=== PATIENT | male | born 1955 | race Caucasian/White ===

== ENCOUNTER 2024-07-28 08:29 | Emergency (ER) | payer OTHER, SELFPAY ==
[2024-07-28 08:36] VITALS: BP 155/96
[2024-07-28 08:56] VITALS: BP 143/95
[2024-07-28 09:28] LABS: % Basophils 0.1 % (0-2); % Eosinophils 0.8 % (0-6); % Immature Granulocytes 0.3 % (0-0.5); % Monocytes 10.8 % (1.7-9.3); Absolute Eosinophils 0.1 10^3/uL (0-0.7); Absolute Lymphocytes 0.4 10^3/uL (1.2-3.4); Absolute Monocytes 0.8 10^3/uL (0.1-0.6); Absolute Neutrophils 5.9 10^3/uL (1.4-6.5); Hematocrit 43.6 % (39.0-52.0); Mean Corp Hgb Conc. 32.1 g/dL (33.0-37.0); Mean Corpuscular Hgb 26.8 pg (27.0-31.0); Mean Corpuscular Volume 83.4 fL (80.0-94.0); Mean Platelet Volume 9.8 fL (7.4-10.4); Nucleated Red Blood Cells % 0 % (-); Platelet Count 200 10^3/uL (130-400); Red Blood Cell Count 5.23 10^6/uL (4.70-6.10); Red Cell Dist. Width 14.3 % (11.5-14.5); White Blood Cell Count 7.2 10^3/uL (4.8-10.8)
--- NOTE | 2024-07-28 09:33 | ED.GENMED ---
History of Present Illness
General
Chief Complaint: Cardiac Symptoms
Source: patient
Time Seen by Provider: 07/28/24 09:15
History of Present Illness
History of Present Illness:
68-year-old male presents to the emergency room after being discovered to have atrial fibrillation. Patient had gone to an outpatient center for a colonoscopy. While they were preparing the patient for the procedure they noted he was in atrial
fibrillation on the groundwater monitoring technician. They canceled the procedure and referred him to the emergency room. Patient denies any chest pain or shortness of breath. He was unaware he was in A-fib. He does have a history of an NE but does not see a
tool and die assembler regularly. He does not take any anticoagulation. No complaints at this time.
Phy Exam
Physical Exam
Physical Exam:
General: Awake, Alert, Oriented X3. No acute distress.
Vitals: unremarkable
Head: Atraumatic
Eyes: Pupils equal, EOMI
Throat: Airway intact, no exudates
Neck: Trachea midline
Lungs: Clear and equal b/l
Heart: Regular rate, no murmurs
Abd: Soft, Nontender, No pulsatile mass
Neuro: Nonfocal
Skin: Warm, dry, no rash
Extremities: pulses equal b/l, no edema
Scores
[id number] Score for Afib Stroke Risk
Age in Years (65=0, 65-74=1, >/=75=2): 65-74
Sex (Female=+1): Male
Congestive Heart Failure History (Yes=+1): No
Hypertension History (Yes=+1): Yes
Stroke/TIA/Thromboembolism History (Yes=+2): No
Vascular Disease History (Yes=+1): No
Diabetes Mellitus (Yes=+1): No
Score: 2
Anticoagulation Recommendations: Recommend anticoagulation (as validated in nonvalvular fib)
Course
Orders/Labs/Results
Orders:
Orders
07/28/24 08:31
Electrocardiogram (*1) Urgent
Reason for Study: Atrial Fibrillation
EKG- Treatment ONCE
07/28/24 09:08
CBC/With Diff [Complete Blood Count/With Diff] Urgent
Comprehensive Metabolic Panel Urgent
TSH Reflex To Free T4 Urgent
Comment: ADD ON
07/28/24 09:33
Add On- LAB Urgent
Tests Added?: tsh reflex t4
07/28/24 09:41
Apixaban [Eliquis] 5 mg PO NOW STA
Abnormal Lab Results
07/28/24
09:08
MCH 26.8 L pg
(27.0-31.0)
MCHC 32.1 L g/dL
(33.0-37.0)
Absolute Lymphs (auto) 0.4 L 10^3/uL
(1.2-3.4)
Absolute Monos (auto) 0.8 H 10^3/uL
(0.1-0.6)
Neutrophils % 82.0 H %
(42.2-75.2)
Lymphocytes % 6.0 L %
(20.5-51.1)
Monocytes % 10.8 H %
(1.7-9.3)
Glucose 109 H mg/dl
(70-99)
Total Bilirubin 1.8 H mg/dl
(0.2-1.3)
07/28/24 09:08
07/28/24 09:08
Vital Signs
Initial and Last Documented VS:
Initial Vital Signs
Temp Pulse Resp BP Pulse Ox
97.8 F 72 16 155/96 98
07/28/24 08:36 07/28/24 08:36 07/28/24 08:36 07/28/24 08:36 07/28/24 08:36
Last Documented Vital Signs
Temp Pulse Resp BP Pulse Ox
97.8 F 63 11 145/91 99
07/28/24 08:36 07/28/24 09:00 07/28/24 09:00 07/28/24 11:10 07/28/24 09:00
MDM/Problems Addressed
Differential Diagnosis Includes:
Electrolyte abnormality, hypothyroidism, paroxysmal atrial fibrillation
MDM/Problems Addressed:
Patient has no symptoms. He is in A-fib. Chads Vasc score 2. Still on Eliquis. Patient has seen a tool and die assembler at [facility] in the past but he does not wish to continue seeing the tool and die assembler as he is dissatisfied with them. Will provide him
contact information for cardiology here.
*Pulse Oximetry
Patient hypoxic: no
*EKG
Interpreted by ED Provider?: Yes
Interpretation: normal
Heart Rate: 69
Rate: normal
Pomeroy: normal axis
Interval: normal interval
QRS Pattern: right bundle branch block
Ischemia: non-specific ST changes
*Field Instructor Interpretation
Rate: normal
Interpretation: abnormal
Rhythm: a-fib
*Critical Care Note
Total Time (30-74mins, 75-104mins- exclusive of procedures): Not Applicable
ED Attending Note
-
Portions of this chart may have been created with voice recognition software.� Occasional wrong word or��sound alike� substitutions may have occurred due to the inherent limitations of voice recognition software.
Discharge Plan
Departure
Patient Disposition: Home (Routine Discharge)
Date of Disposition: 07/28/24
Time of Disposition: 11:01
Patient with high blood pressure during this ER visit?: Yes
Condition: Good
Discharge Problem:
Paroxysmal A-fib
Instructions: Atrial fibrillation and atrial flutter - ED discharge instructions, BLOOD PRESSURE
Prescriptions:
New
Eliquis 5 mg tablet
5 mg PO BID Qty: 60 0RF
Referrals:
Jaqueline Ocasio MD [Family Provider] -
Farrukh Guardado MD [Active] -
Interventions
Interventions:
*Risk Screen - Suicide Last Done: 07/28/24 08:36
*General Assessment Last Done: 07/28/24 09:05
*Neglect/Abuse Screening Last Done: 07/28/24 08:36
ED- Fall Risk Assessment Last Done: 07/28/24 08:44
*ED COVID-19 Vaccine History Last Done: 07/28/24 09:04
*Nursing Disposition Last Done: 07/28/24 11:11
ED- Pulmonary Assessment Last Done: 07/28/24 08:44
ED- Cardiac Assessment Last Done: 07/28/24 08:44
Discharge Date and Time
Discharge Date/Time: 07/28/24 11:11
Print Language: IRISH
[2024-07-28 09:34] LABS: ALT (SGPT) 32 U/L (0-50); AST (SGOT) 30 U/L (17-59); Albumin 4.2 g/dl (3.5-5.0); Alkaline Phosphatase 101 U/L (38-126); Blood Urea Nitrogen 11 mg/dl (9-20); Calcium 9.3 mg/dl (8.4-10.2); Carbon Dioxide 26 mmol/L (22-30); Chloride 102 mmol/L (98-107); Glucose 109 mg/dl (70-99); Potassium 4.2 mmol/L (3.5-5.1); Sodium 136 mmol/L (135-145); Total Bilirubin 1.8 mg/dl (0.2-1.3); Total Protein 6.6 g/dl (6.3-8.2); eGFR > 60.00
[2024-07-28] MEDS: ELIQUIS 5 MG PO (10:23)
[2024-07-28 10:57] LABS: TSH Reflex To Free T4 2.46 uIU/ml (0.47-4.68)
[2024-07-28 11:10] VITALS: BP 145/91
== END 2024-07-28 11:11 | disposition home or self-care (01) ==
LOC: EMR 08:29
PROVIDERS: EMERGENCY PHYSICIAN Emergency Medicine; FAMILY PHYSICIAN Family Medicine
DX: I48.0 Paroxysmal atrial fibrillation (principal); I25.2 Old myocardial infarction
CPT/HCPCS: 99284; 80053; 84443; 85025; 93005

== ENCOUNTER → 2024-08-25 22:00 | Outpatient (REF) | payer OTHER, SELFPAY | LOC: DHSLP 22:00 | PROVIDERS: ATTENDING PHYSICIAN Internal Medicine Cardiovascular Disease | DX: G47.30 Sleep apnea, unspecified (principal); R06.83 Snoring | CPT/HCPCS: 95800 ==

== ENCOUNTER → 2024-08-27 08:07 | Outpatient (REF) | payer OTHER, SELFPAY | LOC: HWRCS 08:07 | PROVIDERS: ATTENDING PHYSICIAN Internal Medicine Cardiovascular Disease; FAMILY PHYSICIAN Family Medicine | DX: R07.89 Other chest pain (principal) | CPT/HCPCS: 78452; 93017; A9500 ==

== ENCOUNTER → 2024-09-03 07:12 | Outpatient (REF) | payer OTHER, SELFPAY | LOC: HWRCS 07:12 | PROVIDERS: ATTENDING PHYSICIAN Internal Medicine Cardiovascular Disease; FAMILY PHYSICIAN Family Medicine | DX: I48.91 Unspecified atrial fibrillation (principal); R07.9 Chest pain, unspecified; I45.10 Unspecified right bundle-branch block | CPT/HCPCS: 93306 ==

== ENCOUNTER → 2025-01-14 07:37 | Outpatient (REF) | payer OTHER, SELFPAY ==
[2025-01-14 09:47] LABS: Potassium 4.3 mmol/L (3.5-5.1)
== END ==
LOC: REG 07:37
PROVIDERS: ATTENDING PHYSICIAN Physician Assistant; FAMILY PHYSICIAN Family Medicine; OTHER PHYSICIAN Internal Medicine Cardiovascular Disease
DX: E87.5 Hyperkalemia (principal)
CPT/HCPCS: 36415; 84132

== ENCOUNTER 2025-01-30 08:41 | Day surgery (SDC) | payer OTHER, SELFPAY ==
[2025-01-07 09:32] VITALS: BMI 24.0
[2025-01-07 09:59] LABS: Hematocrit 42.3 % (39.0-52.0); Hemoglobin 13.4 g/dL (13.0-18.0); Mean Corp Hgb Conc. 31.7 g/dL (33.0-37.0); Mean Corpuscular Volume 85.1 fL (80.0-94.0); Nucleated Red Blood Cells % 0 % (-); Platelet Count 178 10^3/uL (130-400); Red Cell Dist. Width 14.9 % (11.5-14.5)
[2025-01-07 10:07] LABS: INR 1.23; PT 16.0 Sec (11.4-14.6)
[2025-01-07 10:19] LABS: Blood Urea Nitrogen 11 mg/dl (9-20); Carbon Dioxide 29 mmol/L (22-30); Chloride 106 mmol/L (98-107); Estimated Creatinine Clearance 85 ml/min; Glucose 92 mg/dl (70-99); Potassium 5.7 mmol/L (3.5-5.1); Sodium 140 mmol/L (135-145); eGFR > 60.00
[2025-01-07 10:20] LABS: ALT (SGPT) 20 U/L (0-50); AST (SGOT) 24 U/L (17-59); Albumin 4.4 g/dl (3.5-5.0); Alkaline Phosphatase 66 U/L (38-126); Calcium 9.6 mg/dl (8.4-10.2); Magnesium 2.0 mg/dl (1.6-2.3); Total Protein 7.0 g/dl (6.3-8.2)
--- NOTE | 2025-01-07 11:39 | HPS.HSE ---
Family Physician
-
Family Physician: Jaqueline Ocasio
Chief Complaint
-
Persistent atrial fibrillation.
History of Present Illness
The patient is a 69 year old male presenting today for persistent atrial fibrillation. His most recent CAM in August 2024 revealed a 100% atrial fibrillation burden. He does report symptoms of atypical chest discomfort, palpitations, and
lightheadedness in the past, all likely associated with this diagnosis. A stress test in August 2024 was negative for ischemia. His most recent echocardiogram demonstrated normal left and right ventricular function with mild-moderate valvular
disease. He is currently rate controlled without the use of pharmacological therapy. He is on Eliquis for oral anticoagulation due to a CHADS-VASc of 2. He is interested in pursuing pulmonary vein isolation for further arrhythmia management at this
time. He denies any complaints today such as chest pain, shortness of breath, nausea, vomiting, diarrhea, cough, sore throat, or fever.
Medical History
Past Medical History
Past Medical History: Reports Other
Additional Past Medical History:
1. Persistent atrial fibrillation, oral anticoagulation with Eliquis.
2. Dyslipidemia.
3. Coronary artery disease, status post PCI with stent, 2011, and CABG x3 2012.
4. Bifascicular block.
5. Aortic root dilation, 4 cm on imaging.
6. Mild-moderate valvular disease.
7. Small bilateral pulmonary nodules on chest CT.
8. Chronic cough.
9. GERD.
10. Colon polyps.
11. Diverticulosis.
12. History of hepatitis C, treated.
13. Right lower extremity neuropathy.
14. Basal cell carcinoma, status post excision.
15. Hyperkalemia, improved with dietary adjustments.
16. Remote tobacco abuse.
Past Surgical History: Reports Other
Additional Past Surgical History:
1. PCI with stent.
2. CABG x3.
3. Left inguinal hernia repair.
4. Left knee surgery.
5. Bilateral cataract extraction.
6. Multiple colonoscopies.
7. Endoscopy.
Social History
Tobacco: Former Smoker (He is a former 1 pack per day cigarette smoker who quit tobacco altogether in 2011. )
Alcohol: None
Personal:
Living: Other (He lives with his and son in a split level home. )
Family History
Family History: Not pertinent
Allergies / Home Medications
Allergy/Medication List:
Home medications:
1. Apixaban 5 mg p.o. twice a day.
2. Atorvastatin 40 mg p.o. at bedtime.
3. Omeprazole 40 mg p.o. at bedtime.
Allergies: No known allergies.
Review of Systems
-
A 12 point ROS was completed and negative except as noted: Yes
Physical Exam
Vital Signs
Blood pressure 145/76. Heart rate 53. Respirations 18. Pulse ox 100% on room air.
Height 5 feet, 9 inches. Weight 73.8 kg. BMI 24.0.
Physical Exam
General: Well Developed, Well Nourished and No Apparent Distress
HEENT: NormoCephalic, Moist mucous membranes, Atraumatic and PERRLA
Respiratory: Clear
Cardiac: Irregular Rhythm
GI: Soft, Non Tender and Non Distended
Musculoskeletal: No Edema and Normal Gait & Station
Skin: Warm and Dry
Neuro: AO x 3 and Nonfocal/grossly intact
Laboratory Results
-
01/07/25 09:47
01/07/25 09:43
Laboratory Results
PT 16.0 Sec (11.4-14.6) H 01/07/25 09:43
INR 1.23 01/07/25 09:43
Total Bilirubin 1.4 mg/dl (0.2-1.3) H 01/07/25 09:43
AST 24 U/L (17-59) 01/07/25 09:43
ALT 20 U/L (0-50) 01/07/25 09:43
Alkaline Phosphatase 66 U/L (38-126) 01/07/25 09:43
Magnesium 2.0.
Type and screen AB positive.
DIAGNOSTIC STUDIES as of 01/14/2025: Potassium 4.3.
EKG 01/07/2025: Atrial fibrillation. Bifascicular block.
Chest CT 01/07/2025: Short segment common vestibule for the left superior and inferior pulmonary veins, fairly commonly seen and considered normal variant. Separate drainage ostium for the right middle lobe pulmonary vein. No evidence for left
atrial thrombus. Small bilateral pulmonary nodules measuring up to 5 mm. If the patient is considered high risk, an optional follow-up noncontrast CT chest can be obtained in 12 months.
Echocardiogram 09/03/2024: Normal left ventricular size and systolic function. No regional wall motion abnormalities are seen. LV ejection fraction is 60-65% by Mercer's method of discs. Mild concentric left ventricular hypertrophy. Diastolic
function indeterminate. Normal right ventricular size and function. Mildly thickened mitral valve leaflets with moderate mitral regurgitation. Sclerotic, trileaflet aortic valve with normal leaflet excursion and no significant regurgitation seen.
Tricuspid valve opens normally with moderate tricuspid regurgitation. Estimated pulmonary artery pressure of 40-45 mmHg, assuming a right atrial pressure of 3 mmHg. Sinus of Valsalva is 4.0 cm., S-T junction is 3.0 cm. and proximal ascending aorta
is 3.7 cm.
Myocardial stress test 08/27/2024: Inconclusive ECG for ischemia given baseline EKG abnormality. Normal exercise nuclear stress test. The exercise tolerance is below average for given age and gender. Stress Risk is low risk study (<1% FL or
/year). (Zapien Treadmill Score = +6). Systolic function is normal. The ejection fraction is 74%. No previous study available for comparison.
Impression/Plan
-
IMPRESSION/PLAN:
1. Persistent atrial fibrillation: The patient is in need of a pulmonary vein isolation with Dr. Will Prince on 01/30/2025. The benefits and risks of the procedure have been explained to the patient. The patient understands these risks and wishes
to proceed. He will not be required to undergo a pre-procedural transesophageal echocardiogram as he has been compliant with his home oral anticoagulation. He is aware to continue Eliquis uninterrupted prior to his ablation. He will take no
medications the morning of his procedure.
2. Small bilateral pulmonary nodules on pre-ablation chest CT: Per the patient, these pulmonary nodules are not new and he follows Dr. Ronaldo Man of Pulmonary for this diagnosis. They are followed with yearly serial CT scans. A copy of the patient's
chest CT was forwarded to his learning support resource room teacher for further review.
--- NOTE | 2025-01-12 15:50 | OID.L.PAT ---
Pulmonary Nodule Pat Letter
- -
01/12/25
ABDULLAHI BRITO
[address]
[place] [id number]
Dion FERNANDO,
A pulmonary nodule was seen on an imaging study done by [facility]. This was reviewed by the [facility] Pulmonary Nodule Advisory Board and the following recommendation was made:
Recommendation: Follow up CT Chest in 12 months.
If you have any questions, please do not hesitate to contact your primary care physician. If you are in need of a Physician, you can go to [email or web address] and click on 'Find a Provider'. Type 'Family Medicine' in the search.
Oncology Nurse Navigator
[facility]
[phone]
--- NOTE | 2025-01-12 15:51 | OID.L.REC ---
Pulmonary Nodule Follow Up
- Recommendation
01/12/25
Pulmonary Nodule Review Recommendations
Your patient, ABDULLAHI BRITO, had a pulmonary nodule seen on an imaging study done on 01/07/[address] [facility] Radiology Department.
This was reviewed by the [facility] Pulmonary Nodule Advisory Board and the following recommendation was made:
Recommendation: Follow up CT Chest in 12 months.
If you have any questions, please do not hesitate to contact us.
Sincerely,
Oncology Nurse Navigator
[facility]
[phone]
[2025-01-30] VITALS (11 sets, daily range): BP systolic 109–163; BP diastolic 61–88; BMI 24.4
--- NOTE | 2025-01-30 11:18 | ITS.CL.ABL ---
Paint Tester - Ablation
Ablation
Procedure Report:
Primary Care: Dr Jaqueline Ocasio
Procedure Date: 01/30/2025
Patient History:
Patient is a pleasant 69-year-old male with a past medical history significant for CAD status post PCI and CABG in 2011 in 2012, dyslipidemia, right bundle branch block, GERD, symptomatic paroxysmal atrial fibrillation now persistent atrial
fibrillation.
See H&P for complete details.
Indication:
Symptomatic persistent atrial fibrillation
Arrhythmia Specific History:
Prior Medical Therapies for Rate and Rhythm Control:
[ ] Beta-demetrio
[ ] Calcium channel-demetrio
[ ] Amiodarone
[ ] Dronederone
[ ] Sotalol
[ ] Flecainide
[ ] Dofetilide
X Options limited by bradycardia
[ ] Options limited by comorbid renal disease
Prior Procedural Therapies for AF/AFL:
[ ] Cardioversion
[ ] Pulmonary Vein Isolation
[ ] Posterior Wall Isolation
[ ] Additional lines (Specify)
[ ] Surgical Donis-MAZE or PVI (Specify)
Procedure Performed:
X AF ablation procedure (47001) -- includes LA/CS pacing, trans-septal, 3D mapping, + ICE
[ ] +IV drug (03289)
[ ] +Other Arrhythmia (40202)
X +Other AF Line/ablation (20815) -- floor line, roof line, posterior wall isolation
Risks and expected recovery has been explained in detail. Alternative options have been explored, and in a shared-decision making fashion we have decided that this was the most appropriate procedure.
Method
NPO status confirmed. Grounding pad applied. Defibrillator pads applied. Continuous surface ECG, pulse oximetry, and blood pressure were monitored. Procedure was performed under general anesthesia, with anesthesia services.
Both groins were clipped, prepped with Chloraprep, and draped in sterile fashion. Time out was called. Local anesthesia administered with bupivacaine. The right femoral vein was accessed for catheter placement, using ultrasound guidance (images
saved to record), micro-puncture needle/wire, and modified seldinger technique. 3 sheaths were placed. The following catheters were used:
[ ] Tacticath SE (D/F Curve) ablation catheter
X Viewflex 9Fr ICE catheter
X Inquiry decapolar 6Fr diagnostic catheter
[ ] CRD Hex 6Fr
X FlexCath Contour 10 Fr with PulseSelect PFA Catheter
X Advisor HD Grid Mapping Catheter, SE
[ ] Acuson AcuNav 8 Fr ICE catheter
[ ]Other: [ ]
Intracardiac ultrasound (ICE) was carefully advanced into the right atrium to guide sheath placement over a J-wire, catheter placement, guide trans-septal puncture, identify potential complications, identify anatomic structures and ensure proper
contact between ablation catheter and tissue.
Heparin was given prior to trans-septal puncture. Heparin was given to achieve and maintain a target ACT of 300-400 seconds throughout the procedure.
Trans-septal access was performed under ICE guidance. The trans-septal puncture was performed with a SafeSept wire through a Brockenbrough needle assembly through the steerable sheath. The wire was visualized as it entered the LSPV and system
advanced under ICE guidance and fluoroscopy into the LA. The Brockenbrough needle assembly, SafeSept wire and sheath dilator were removed under negative pressure. LA pressure was measured and recorded.
ICE and 3D mapping was performed to identify relevant cardiac structures. A careful 3D map was created to assess for regions of low-voltage and abnormal electrogram signals using HD grid mapping catheter and PulseSelect catheter. Additional mapping
was performed as outlined below.
Prior to ablation, glycopyrrolate was provided. PulseSelect catheter was advanced over J-wire to the ostium of each vein. Pulmonary vein isolation was performed with ostial and antral lesions in a circumferential manner. Contact was visualized via
EAM, ICE, fluoroscopy, and EGM signals.
After accomplishing pulmonary venous isolation, mapping identified additional areas likely to be extra PV contributors to atrial fibrillation. These areas demonstrated patchy low voltage as well as complex fractionated electrograms. These areas can
be sites for the formation of rotors which can drive and maintain atrial fibrillation. These areas are known to be significant contributors to initiation and perpetuation of atrial fibrillation.
Additional energy applications/additional ablation sets targeted extra PV contributors to atrial fibrillation.
Targets for additional PFA ablation included: LA posterior wall targeted with pulsed electric field energy isolating the posterior wall of the left atrium. Posterior wall isolation was performed by anchoring the J-wire within the pulmonary vein and
placing the PulseSelect catheter in contact posterior wall as visualized by aforementioned methods.
After ablation of the posterior wall, targets remained including:
- Inferior LA floor
- Anterior LA roof
- The ridge of tissue between the left atrial appendage and the left sided pulmonary veins (Ligament of Yohan)
These areas were ablated using pulsed electric field energy eliminating the extra PV contributors to atrial fibrillation.
Following completion of ablation lesions, sinus rhythm was restored with a 200J synchronized DCCV and a post-ablation voltage/activation map was performed in sinus rhythm. Entrance and exit block were confirmed for each vein and the posterior wall.
Catheter and sheath were removed from the left atrium and post-ablation intracardiac echo evaluation was consistent with pre-ablation with no changes and no pericardial effusion and there is no left atrial thrombus or left ventricle thrombus seen.
Electrophysiology study was performed. Hemostasis was obtained with figure of 8 stitch for each groin and with manual pressure. Protamine was used for reversal.
Estimated Blood Loss
5 mL
Complications
None
Fluoroscopy: 2.6 minutes; 16.99 mGy; DAP 1.99
LA Pressure: Pre 8 mmHg, post 11 mmHg
Baseline Intervals:
Rhythm: AF
QRS: 138 ms
QT: 482 ms
QTc: 466 ms
Post-Procedure Intervals:
ID: 175 ms
QRS: 154 ms
QT: 457 ms
QTc: 455 ms
AVWB: 490 ms
AVNERP: 600/410 ms
AERP: 600/280 ms
Recommendations
- Bedrest with straight-leg precautions as ordered
- Anticipate same day discharge if patient meeting clinical metrics
- Resume home medications as indicated
- Ok to resume anticoagulation tonight if patient and groin sites stable
- PPI daily for 30 days
- Plan for follow-up in office as scheduled
Will Prince DO, FACC, RS
Clinical Cardiac Dealer Card Room
cc: Dr Jaqueline Ocasio
[2025-01-30] MEDS: ANESTHETIC LOZENGE 1 LOZENGE PO (14:23)
--- NOTE | 2025-01-30 16:11 | W.PN.UPDATE ---
Update Note
Progress Note Update
Pt seen post PFA. Right groin without ht/bleeding. Post EKG SB 56 w/PACs and RBBB as before, no acute changes. Resume eliquis tonight at usual time. Continue other meds as before. Followup at [facility] as scheduled. Home today if groin site/tele remain
stable.
== END 2025-01-30 18:00 | disposition home or self-care (01) ==
LOC: CATH 08:41
PROVIDERS: ATTENDING PHYSICIAN Internal Medicine Cardiovascular Disease; FAMILY PHYSICIAN Family Medicine
DX: I48.19 Other persistent atrial fibrillation (principal); I10 Essential (primary) hypertension; E78.5 Hyperlipidemia, unspecified; I25.10 Atherosclerotic heart disease of native coronary artery without angina pectoris; Z95.5 Presence of coronary angioplasty implant and graft; R91.8 Other nonspecific abnormal finding of lung field; R05.3 Chronic cough; Z86.0100 Personal history of colon polyps, unspecified; K57.90 Diverticulosis of intestine, part unspecified, without perforation or abscess without bleeding; Z86.19 Personal history of other infectious and parasitic diseases; Z85.828 Personal history of other malignant neoplasm of skin; E87.5 Hyperkalemia; Z87.891 Personal history of nicotine dependence; K21.9 Gastro-esophageal reflux disease without esophagitis; I45.2 Bifascicular block; I49.1 Atrial premature depolarization; Z79.01 Long term (current) use of anticoagulants; Z79.899 Other long term (current) drug therapy; Z91.048 Other nonmedicinal substance allergy status; R91.1 Solitary pulmonary nodule
CPT/HCPCS: C1733; C1766; C1732; C1894; C1730; C1769; 36415; 75572; 80053; 83735; 85025; 85347; 85610; 86850; 86900; 86901; 93005; 93656; 93657; Q9967